=== PATIENT | male | born 1935 | race Caucasian/White ===

== ENCOUNTER → 2017-01-06 | Outpatient (CLI) | payer BC, MEDICARE ==
--- NOTE | 2017-01-06 10:07 | FL ---
Small bowel follow-through HISTORY: Anterolisthesis, constipation Correlation to CT scan 03 Jan 2017 Patient was given high density barium to drink. Contracts Paralegal film shows degenerative disc changes, vascular calcifications are present within the pelvis. 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 Calcification seen within the colon on the CT is not identified with certainty on today's exam. There is no evident bowel obstruction. No fistula formation. Fold pattern is normal. Terminal ileum is normal. IMPRESSION: No evident obstruction. Normal fold pattern. Additional findings above.
== END | disposition home or self-care (01) ==
LOC: RADFLMAIN 07:49
PROVIDERS: ATTEND General Practice
DX: K58.1 Irritable bowel syndrome with constipation (principal)
CPT/HCPCS: 74250

== ENCOUNTER → 2018-10-25 | Outpatient (CLI) | payer MEDICARE ==
--- NOTE | 2018-10-25 13:06 | CONS ---
CONSULTATION DATE OF SERVICE: 10/25/2018 An 83-year-old gentleman who has been evaluated in the Sleep Center for his sleep problems. HISTORY OF PRESENT ILLNESS/SLEEP-WAKE EVALUATION: Patient had difficulties with initiating sleep which improved while he is on treatment with paroxetine and trazodone at bedtime. His sleep schedule from around 10 p.m. until 6 - 7:00 a.m. No TV in bedroom. He usually sleeps on the side position by himself presently. No information about his snoring or breathing during the sleep. Patient awakenings from sleep several times with 1 episode of nocturia. He usually does not take any naps and drinks 2 caffeinated beverages during the day. [place] Sleepiness Scale is 1. PAST MEDICAL HISTORY: Positive for hypertension, diabetes, hyperlipidemia, possible anxiety, right leg DVT. MEDICATIONS: Metformin, lisinopril, chlorthalidone, amlodipine, simvastatin, trazodone, paroxetine, aspirin. Previously was on . Medication was stopped. SOCIAL HISTORY: Patient quit smoking 50 years ago. Alcohol consumption none since June of 2018. FAMILY HISTORY: Hypertension, hyperlipidemia, diabetes. REVIEW OF SYSTEMS: Awakenings from sleep with nocturia. PHYSICAL EXAM: gentleman without distress, BP 132/68, HR 50, RR 18, height 5 foot 6 inches, weight 186.4 pounds, body mass index 30.0, temperature 98.5, oxygen saturation at room air 95%. OROPHARYNX: Extremely low position of soft palate. Mallampati IV. Slight restriction of nasal breathing. HEART: S1, S2, irregular, possible trigeminy. Episodes of breathing pauses and deep breaths while sitting. Neck Supple, no JVD. Thyroid is not palpable. ABDOMEN Soft and nontender. Bowel sounds are present. No organomegaly appreciated. EXTREMITIES No clubbing or cyanosis. 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 Cranial nerves 2 to 7 intact. There is no fasciculation or atrophy. noted. No focal deficits observed. IMPRESSION: 1. Low position of soft palate. Restriction of nasal breathing, awakenings from sleep with nocturia. Possible obstructive sleep apnea-hypopnea syndrome. 2. Hypertension. 3. Diabetes mellitus. 4. History of asthma. 5. Hyperlipidemia. 6. History of possible anxiety. 7. Status post right leg deep venous thrombosis. 8. Cardiac arrhythmia by auscultation, trigeminy. PLAN: 1. Polysomnography for evaluation of patient's breathing during sleep. 2. CPAP/BiPAP titration if sleep study confirms obstructive sleep apnea-hypopnea syndrome. 3. Preferable position during sleep on the side. 4. No driving if patient feels any sleepiness. 5. I will see patient for follow up visit to explain results of testing and following plan. Thank you very much for referring this patient for consultation. Sincerely, Juma Childers MD, PhD, FAASM Diplomat of [place] [employer] [place] [employer] Beck Tender [facility] [place] MMODL / IJN: [id number] /
== END ==
LOC: SLEEP 11:06
PROVIDERS: ATTEND Internal Medicine
DX: R35.1 Nocturia (principal); I10 Essential (primary) hypertension; E11.9 Type 2 diabetes mellitus without complications; J45.909 Unspecified asthma, uncomplicated; E78.5 Hyperlipidemia, unspecified; R00.8 Other abnormalities of heart beat; Z86.718 Personal history of other venous thrombosis and embolism; Z79.899 Other long term (current) drug therapy; Z79.84 Long term (current) use of oral hypoglycemic drugs; Z79.82 Long term (current) use of aspirin; Z87.891 Personal history of nicotine dependence
CPT/HCPCS: 99211

== ENCOUNTER → 2018-11-30 | Outpatient (CLI) | payer MEDICARE ==
[2018-11-30 07:17] LABS: Blood Urea Nitrogen 13 mg/dL (9-20)
--- NOTE | 2018-11-30 15:59 | CT ---
EXAMINATION TYPE: CT abdomen pelvis w con DATE OF EXAM: 11/30/2018 COMPARISON: None INDICATION: Gross hematuria. DLP: 979 mGycm, Automated exposure control for dose reduction was used. CONTRAST: 100 mL of Isovue 300. Study performed with Oral Contrast TECHNIQUE: Axial images were obtained from above the diaphragm to the pubic rami in the axial plane a t 5 mm thick sections. Reconstructed images are reviewed on the computer in the coronal plane. FINDINGS: Limited CT sections are obtained the lung bases. The lung bases are clear. CT ABDOMEN: Liver: Normal Spleen: Normal Pancreas: Normal Adrenal glands: The adrenal glands are normal. Gallbladder: Normal Kidneys: No masses are evident. No hydronephrosis is present. Several cysts are present through the kidneys. This includes 1.4 cm cysts at the superior anterior left kidney measuring 20 and 16 Hounsfi eld units and a 2.0 cm cyst measuring 10 Hounsfield units on the medial inferior pole right kidney. A 1.8 cm Peripelvic cyst or cortical renal cyst measuring 14 Hounsfield units on the mid right kidney. Delayed images were obtained through the kidneys better demonstrate cysts. Additional smaller corti jo ann renal cysts are evident. Aorta: Vascular calcification is within the aorta. Inferior vena cava: Normal. CT PELVIS: Multiple diverticuli are present throughout the colon including transverse colon and descending colon and sigmoid colon. Fecal debris is at the level the rectum. Study is performed with oral contrast. O ral contrast extends to the mid transverse colon. There are loops of bowel lacking oral contrast limi ting evaluation. Appendix: Normal as visualized. Urinary bladder: Normal. Genitourinary structures: Prostate appears prominent Osseous structures: No suspicious lytic or sclerotic lesions. Degenerative joint changes at the bilat eral hips. Degenerative disc changes are present L5-S1. Milder degenerative disc changes are within t he lumbar spine. IMPRESSIONS: 1. Colonic diverticulosis without acute diverticulitis. 2. Multiple bilateral renal cysts. 3. Prostate hypertrophy. 4. No etiology for hematuria identified.
== END | disposition home or self-care (01) ==
LOC: RADCTMAIN 06:42
PROVIDERS: ATTEND Urology
DX: N28.1 Cyst of kidney, acquired (principal); N40.0 Benign prostatic hyperplasia without lower urinary tract symptoms; K57.30 Diverticulosis of large intestine without perforation or abscess without bleeding; R31.9 Hematuria, unspecified
CPT/HCPCS: 82565; 84520; 74177; 36415; Q9967

== ENCOUNTER → 2019-01-10 | Outpatient (CLI) | payer MEDICARE ==
--- NOTE | 2019-01-10 14:12 | SFUN ---
SLEEP CENTER FOLLOW UP NOTE DATE OF SERVICE: 01/10/2019 An 83-year-old gentleman has been followed in the Sleep Center for treatment of obstructive sleep apnea-hypopnea syndrome. Recently patient had a polysomnogram which showed that patient has obstructive sleep apnea and then he had CPAP titration. During titration, his respiration was on full control. Subsequently, he was started on treatment with CPAP. Today is his first visit when he comes back to the office after starting CPAP. Patient is able is able to use CPAP every night for the whole night and sleeps well with the machine. [place] Sleepiness Scale is only 1, which is absolutely perfect. I checked CPAP unit. CPAP pressure is 9 cm of water. Usage is 100% of nights more than 4 hours, average 8.4 hours. Apnea-hypopnea index only 0.9, which is absolutely perfect, but quite significant leak 59 L/minute. Patient referred that he has dry mouth in the morning. MEDICATIONS: Apresoline, gabapentin, sertraline, simvastatin, aspirin, carvedilol, Tylenol, vitamin D, spironolactone. PHYSICAL EXAM: Patient in no distress. BP 159/88, HR 80, RR 18, weight 187, temp 98.5, oxygen saturation at room air 94%. OROPHARYNX: Low position of soft palate. Mallampati 4. ABDOMEN: Obese. Neck Supple, no JVD. Thyroid is not palpable. LUNGS Clear to percussion and to auscultation. Good air exchange. No wheezing or rhonchi. HEART S1, S2 regular. No murmurs, gallops, or rubs. EXTREMITIES No clubbing or cyanosis. 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 Cranial nerves 2 to 7 intact. There is no fasciculation or atrophy. noted. No focal deficits observed. IMPRESSION: 1. Obstructive sleep apnea-hypopnea syndrome. Patient demonstrated 100% compliance with treatment, benefitting from treatment. 2. History of cardiac arrhythmia. 3. Hyperlipidemia. 4. . 5. History of anxiety and panic attack. 6. Status post cholecystectomy. 7. History of benign tumor of thyroid. 8. Status post bilateral knee replacement. 9. History of spinal stenosis. 10.Status post bilateral shoulder replacement. PLAN: 1. Patient will continue to use CPAP equipment every night for the whole night. 2. Prescription for chin strap. 3. I will maintain all necessary prescriptions for nasal pillow mask, tube, filters. 4. Watching and losing weight. 5. No driving if feeling sleepiness. Thank you very much for allowing me to participate in the management of your patient. Sincerely, Juma Childers MD, PhD, FAASM Diplomat of [place] [employer] [place] [employer] Garden Labourer of [facility] [place] MMODL / SHAHRZAD: [id number] /
== END ==
LOC: SLEEP 13:24
PROVIDERS: ATTEND Internal Medicine
DX: G47.33 Obstructive sleep apnea (adult) (pediatric) (principal); E78.5 Hyperlipidemia, unspecified; F41.9 Anxiety disorder, unspecified; F41.0 Panic disorder [episodic paroxysmal anxiety]; M48.00 Spinal stenosis, site unspecified; Z90.49 Acquired absence of other specified parts of digestive tract; Z86.79 Personal history of other diseases of the circulatory system; Z96.653 Presence of artificial knee joint, bilateral; Z96.611 Presence of right artificial shoulder joint; Z96.612 Presence of left artificial shoulder joint; Z99.89 Dependence on other enabling machines and devices; Z86.018 Personal history of other benign neoplasm

== ENCOUNTER → 2019-08-05 | Outpatient (CLI) | payer MEDICARE ==
[2019-08-05 08:55] LABS: African American GFR (CKD) >90 (>60 ml/min/1.73 sqM); Blood Urea Nitrogen 11 mg/dL (9-20); Non-African American GFR(CKD) 86 (>60 ml/min/1.73 sqM)
--- NOTE | 2019-08-05 10:56 | CT ---
EXAMINATION TYPE: CT abdomen pelvis w con DATE OF EXAM: 08/05/2019 COMPARISON: 11/30/2018 HISTORY: Hematuria CT DLP: 915.8 mGycm CONTRAST: CT scan of the abdomen and pelvis is performed with Oral Contrast and with IV Contrast, patient injec kaleb with 100 mL of Isovue 300. FINDINGS: LUNG BASES-: No visible nodule. No infiltrate. LIVER/GB: No calcified gallstones. No space occupying hepatic lesion. Biliary tree is of normal ca liber. PANCREAS: No inflammation. No distinct mass. SPLEEN: No splenic enlargement. No lesion seen. ADRENALS: No nodule. No thickening. KIDNEYS/BLADDER: Bilobed simple cyst upper pole left kidney redemonstrated with components measuring 1.3 cm 1.4 cm respectively. Tiny subcentimeter cyst seen lower pole left kidney. Simple cyst lower po le right kidney measures 2.2 cm and is stable. Parapelvic cyst right kidney measures 2.1 cm and is al so stable. No solid renal lesions are detected. No hydronephrosis or nephrolithiasis detected. Unrema rkable appearing urinary bladder. BOWEL: Normal appendix. Normal bowel caliber. No inflammation. Moderate rectosigmoid fecal stasis. GENITAL ORGANS: The prostate gland is enlarged. LYMPH NODES: No greater than 1cm abdominal or pelvic lymph nodes are appreciated. AORTA: No significant abnormality. OSSEOUS STRUCTURES: No significant abnormality is seen. OTHER: No significant additional abnormality is seen. IMPRESSION: 1. No significant abnormality to account for the patient's symptoms of hematuria. 2. Prostate gland enlargement. 3. Moderate rectosigmoid fecal stasis.
== END | disposition home or self-care (01) ==
LOC: RADCTMAIN 08:14
PROVIDERS: ATTEND Urology
DX: N40.0 Benign prostatic hyperplasia without lower urinary tract symptoms (principal); K59.8 Other specified functional intestinal disorders
CPT/HCPCS: 36415; 74177; 82565; 84520

== ENCOUNTER → 2019-08-23 | Outpatient (CLI) | payer MEDICARE ==
--- NOTE | 2019-08-23 14:12 | NM ---
EXAMINATION TYPE: NM bone scan whole body DATE OF EXAM: 08/23/2019 COMPARISON: CT 08/05/2019 HISTORY: Prostate cancer Delayed whole-body scanning was performed following the injection of 24.1 mCi Tc 99m MDP. Images acq uired 3.5 hours post injection. FINDINGS: There is abnormal uptake throughout the cervical, thoracic and lower lumbar spine. Recent CT scan inc luding the lumbar spine and appears to be most secondary to degenerative disc disease. Abnormal uptake involving the hips is noted bilaterally greater on the left. CT scan also includes th is region and is compatible with severe arthropathy. No blastic or destructive changes. Abnormal uptake involving the feet, knees and shoulders and sternoclavicular joints most likely is po st arthritic. Incidental note made of soft tissue artifact. IMPRESSION: 1. No diagnostic evidence of metastases. 2. Abnormal uptake involving the lower lumbar spine and right hip compatible degenerative and arthrit ic changes respectively based on the recent CT scan. 3. Nonspecific uptake involving the cervical and thoracic spine but likely degenerative. 4. Lucent lesion in the right iliac bone noted by recent CT scan demonstrates no definite reduced or increased uptake. Finding is nonspecific, but not typical of prostate cancer.
== END | disposition home or self-care (01) ==
LOC: RADNMMAIN 09:22
PROVIDERS: ATTEND Urology
DX: M51.36 Other intervertebral disc degeneration, lumbar region (principal); C61 Malignant neoplasm of prostate
CPT/HCPCS: 78306; A9503

== ENCOUNTER → 2019-10-30 | Outpatient (CLI) | payer MEDICARE ==
[2019-10-30 11:54] LABS: Basophils % (A) 0 %; Eosinophils # (A) 0.1 k/uL (0-0.7); Eosinophils % (A) 2 %; HCT 43.9 % (39.0-53.0); HGB 15.1 gm/dL (13.0-17.5); Lymphocytes # (A) 1.1 k/uL (1.0-4.8); Lymphocytes % (A) 13 %; MCH 29.6 pg (25.0-35.0); MCHC 34.4 g/dL (31.0-37.0); MCV 86.3 fL (80.0-100.0); Mean Platelet Volume 7.8; Monocytes # (A) 0.5 k/uL (0-1.0); Monocytes % (A) 6 %; Neutrophils # (A) 6.1 k/uL (1.3-7.7); Neutrophils % (A) 77 %; Platelet Count 209 k/uL (150-450); RBC 5.09 m/uL (4.30-5.90); RDW 12.6 % (11.5-15.5)
--- NOTE | 2019-10-30 12:01 | XR ---
EXAMINATION TYPE: XR chest 2V DATE OF EXAM: 10/30/2019 COMPARISON: NONE HISTORY: Z01.818, R05 TECHNIQUE: Frontal and lateral views of the chest are obtained. FINDINGS: There is no focal air space opacity, pleural effusion, or pneumothorax seen. The cardiac silhouette size is within normal limits, there are coronary artery calcifications present. The aorta is dense. There is thoracic spondylosis. The osseous structures are intact. IMPRESSION: No acute cardiopulmonary process.
[2019-10-30 12:18] LABS: African American GFR (CKD) >90 (>60 ml/min/1.73 sqM); Anion Gap 6 mmol/L; Blood Urea Nitrogen 13 mg/dL (9-20); Calcium 9.4 mg/dL (8.4-10.2); Carbon Dioxide 32 mmol/L (22-30); Chloride 98 mmol/L (98-107); Glucose 171 mg/dL (74-99); Non-African American GFR(CKD) 88 (>60 ml/min/1.73 sqM); Potassium 3.9 mmol/L (3.5-5.1); Sodium 136 mmol/L (137-145)
== END | disposition home or self-care (01) ==
LOC: LABPAT 11:15
PROVIDERS: ATTEND Urology
DX: Z01.818 Encounter for other preprocedural examination (principal); Z01.812 Encounter for preprocedural laboratory examination; C66.1 Malignant neoplasm of right ureter; I10 Essential (primary) hypertension; R05 Cough; R31.29 Other microscopic hematuria
CPT/HCPCS: 36415; 71046; 80048; 85025; 87086

== ENCOUNTER 2019-11-09 03:23 | Inpatient (IN) | payer MEDICARE ==
--- NOTE | 2019-11-09 03:51 | ED ---
Fall HPI - General Chief Complaint: Fall Stated Complaint: poss femur fracture Time Seen by Provider: 11/09/19 03:31 Source: patient, EMS Mode of arrival: EMS - History of Present Illness Initial Comments: This patient is an 84-year-old man who presents to be evaluated for left leg pain that started after he fell tonight. The patient states that he fell after he emptied his catheter bag. As result of the fall he states he had left thigh pain and was not able to put any weight on his left leg. EMS was called and brings him here for further evaluation. The patient denies other injury. Patient is offered analgesia at initial history and physical exam but declines. 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: no Place Fall Occurred: home Loss of Consciousness: none Prolonged Down Time?: no Symptoms Prior to Fall: none Location - Extremities: Left: Thigh Severity: moderate Quality: aching Context: tripped/slipped Associated Symptoms: unable to walk - Related Data Home Medications Medication Instructions Recorded Confirmed Aspirin [Adult Low Dose Aspirin EC] 81 mg PO DAILY 11/04/19 11/04/19 Atenolol [Tenormin] 100 mg PO DAILY 11/04/19 11/04/19 Chlorthalidone 25 mg PO DAILY 11/04/19 11/04/19 Cholecalciferol [Vitamin D3 (25 1,000 unit PO DAILY 11/04/19 11/04/19 Mcg = 1000 Iu)] Lisinopril 40 mg PO DAILY 11/04/19 11/04/19 PARoxetine [Paxil] 20 mg PO HS 11/04/19 11/04/19 Simvastatin [Zocor] 20 mg PO DAILY 11/04/19 11/04/19 amLODIPine [Norvasc] 10 mg PO DAILY 11/04/19 11/04/19 metFORMIN HCL [Glucophage] 500 mg PO DAILY 11/04/19 11/04/19 traZODone HCL 150 mg PO HS 11/04/19 11/04/19 Previous Rx's Medication Instructions Recorded Ciprofloxacin HCl [Cipro] 250 mg PO Q12HR #6 tablet 11/08/19 Hydrocodone/Acetaminophen [[place] 1 - 2 each PO Q4HR PRN #10 tab 11/08/19 1-325] Allergies Allergy/AdvReac Type Severity Reaction Status Date / Time No Known Allergies Allergy Verified 11/06/19 11:17 Review of Systems ROS Statement: Those systems with pertinent positive or pertinent negative responses have been documented in the HPI. ROS Other: All systems not noted in ROS Statement are negative. Constitutional: Denies: fever, chills, weakness Respiratory: Denies: cough, dyspnea Cardiovascular: Denies: chest pain, palpitations, syncope Gastrointestinal: Denies: abdominal pain, nausea, vomiting Musculoskeletal: Reports: as per HPI, arthralgia. Denies: back pain Skin: Denies: rash Neurological: Denies: headache, weakness, numbness Past Medical History Past Medical History: Diabetes Mellitus, Deep Vein Thrombosis (DVT), Hyperlipidemia, Hypertension Additional Past Medical History / Comment(s): Prostate Cancer, Urothelial Carcinoma of Right Ureter History of Any Multi-Drug Resistant Organisms: None Reported Additional Past Surgical History / Comment(s): biopsy of rt kidney, colonoscopy, right kidney removal Past Anesthesia/Blood Transfusion Reactions: No Reported Reaction Past Psychological History: No Psychological Hx Reported Smoking Status: Former smoker Past Alcohol Use History: Occasional Past Drug Use History: None Reported - Past Family History Mother Family Medical History: No Reported History General Exam Limitations: no limitations General appearance: alert, in no apparent distress Head exam: Present: atraumatic, normocephalic Eye exam: Present: normal appearance. Absent: scleral icterus, conjunctival injection Neck exam: Present: normal inspection, full ROM. Absent: tenderness, meningismus Respiratory exam: Present: normal lung sounds bilaterally. Absent: respiratory distress, wheezes, rales, rhonchi, stridor, chest wall tenderness Cardiovascular Exam: Present: regular rate, normal rhythm, normal heart sounds. Absent: systolic murmur, diastolic murmur, rubs, gallop GI/Abdominal exam: Present: soft, other (Patient's is surgical incision have normal postoperative appearance. There is small amount of localized ecchymosis at the incision. No abnormal erythema or warmth. No drainage.). Absent: distended, tenderness, guarding, rebound, rigid, mass Extremities exam: Present: tenderness, normal capillary refill. Absent: pedal edema, calf tenderness Left Hip exam: Present: tenderness, external rotation, shortening Knee exam: Present: normal inspection. Absent: tenderness, swelling, abrasion, laceration Lower Leg exam: Present: normal inspection, full ROM. Absent: tenderness, swelling, abrasion Ankle exam: Present: normal inspection, full ROM. Absent: tenderness, swelling Foot/Toe exam: Present: normal inspection, full ROM. Absent: tenderness, swelling Neurovascular tendon exam: Present: no vascular compromise Neurological exam: Present: alert. Absent: motor sensory deficit Skin exam: Present: warm, dry, intact, normal color. Absent: rash Course Vital Signs 11/09/19 11/09/19 03:25 05:15 Temperature 98.5 F 98.1 F Pulse Rate 70 68 Respiratory 18 18 Rate Blood Pressure 158/67 135/73 O2 Sat by Pulse 93 L 94 L Oximetry Medical Decision Making - Lab Data Result diagrams: 11/09/19 03:46 11/09/19 03:46 Lab Results 11/09/19 11/09/19 Range/Units 03:46 03:46 WBC 13.3 H (3.8-10.6) k/uL RBC 4.18 L (4.30-5.90) m/uL Hgb 12.8 L (13.0-17.5) gm/dL Hct 35.7 L (39.0-53.0) % MCV 85.3 (80.0-100.0) fL MCH 30.5 (25.0-35.0) pg MCHC 35.8 (31.0-37.0) g/dL RDW 12.5 (11.5-15.5) % Plt Count 149 L (150-450) k/uL Neutrophils % 88 % Lymphocytes % 5 % Monocytes % 5 % Eosinophils % 1 % Basophils % 0 % Neutrophils # 11.7 H (1.3-7.7) k/uL Lymphocytes # 0.6 L (1.0-4.8) k/uL Monocytes # 0.7 (0-1.0) k/uL Eosinophils # 0.1 (0-0.7) k/uL Basophils # 0.0 (0-0.2) k/uL Sodium 130 L (137-145) mmol/L Potassium 3.3 L (3.5-5.1) mmol/L Chloride 96 L (98-107) mmol/L Carbon Dioxide 30 (22-30) mmol/L Anion Gap 4 mmol/L BUN 19 (9-20) mg/dL Creatinine 0.94 (0.66-1.25) mg/dL Est GFR (CKD-EPI)AfAm 87 (>60 ml/min/1.73 sqM) Est GFR (CKD-EPI)NonAf 76 (>60 ml/min/1.73 sqM) Glucose 162 H (74-99) mg/dL Calcium 8.6 (8.4-10.2) mg/dL Total Bilirubin 1.1 (0.2-1.3) mg/dL AST 23 (17-59) U/L ALT 13 (4-49) U/L Alkaline Phosphatase 46 (38-126) U/L Total Protein 5.5 L (6.3-8.2) g/dL Albumin 3.3 L (3.5-5.0) g/dL Disposition Clinical Impression: Fall, Hip fracture, intertrochanteric Disposition: ADMITTED IP TO THIS HOSP Condition: Fair Is patient prescribed a controlled substance at d/c from ED?: No Referrals: Edwardo Newton MD [Primary Care Provider] - 1-2 days
[2019-11-09 04:02] LABS: Basophils % (A) 0 %; Eosinophils # (A) 0.1 k/uL (0-0.7); Eosinophils % (A) 1 %; HCT 35.7 % (39.0-53.0); HGB 12.8 gm/dL (13.0-17.5); Lymphocytes # (A) 0.6 k/uL (1.0-4.8); Lymphocytes % (A) 5 %; MCH 30.5 pg (25.0-35.0); MCHC 35.8 g/dL (31.0-37.0); MCV 85.3 fL (80.0-100.0); Mean Platelet Volume 7.7; Monocytes # (A) 0.7 k/uL (0-1.0); Monocytes % (A) 5 %; Neutrophils # (A) 11.7 k/uL (1.3-7.7); Neutrophils % (A) 88 %; Platelet Count 149 k/uL (150-450); RBC 4.18 m/uL (4.30-5.90); RDW 12.5 % (11.5-15.5); WBC 13.3 k/uL (3.8-10.6)
[2019-11-09 04:16] LABS: Albumin 3.3 g/dL (3.5-5.0); Calcium 8.6 mg/dL (8.4-10.2); Potassium 3.3 mmol/L (3.5-5.1); Total Bilirubin 1.1 mg/dL (0.2-1.3); Total Protein 5.5 g/dL (6.3-8.2)
--- NOTE | 2019-11-09 04:28 | XR ---
EXAMINATION TYPE: XR femur LT DATE OF EXAM: 11/09/2019 COMPARISON: NONE HISTORY: Leg pain TECHNIQUE: 4 views FINDINGS: There is acute comminuted intertrochanteric fracture left femur. There is no significant di splacement. The acetabulum is intact. There is spurring of the femoral head. The knee joint is intact . There is vascular calcification. IMPRESSION: Acute intertrochanteric fracture left femur.
--- NOTE | 2019-11-09 04:29 | XR ---
EXAMINATION TYPE: XR pelvis AP view DATE OF EXAM: 11/09/2019 COMPARISON: NONE HISTORY: Pain TECHNIQUE: 2 views FINDINGS: There is an acute intertrochanteric fracture of the left femur. There is approximate 1.5 cm of displacement. There is no dislocation. Pelvic ring is intact. Sacroiliac joints appear normal. Th ere is hypertrophic acetabular spurring with left hip joint space narrowing more than the right. IMPRESSION: Acute mildly displaced fracture of the intertrochanteric left femur. Osteoarthritis.
[2019-11-09] MEDS ORDERED: HYDROmorphone 1 MG/ML 1 ML SYRINGE IVP STA (05:07)
[2019-11-09] MEDS ORDERED: HYDROmorphone 1 MG/ML 1 ML SYRINGE IVP PRN (06:20)
[2019-11-09] MEDS ORDERED: MORPHINE SULFATE 4 MG/ML SYRINGE IV PRN (06:20)
[2019-11-09] MEDS ORDERED: NALOXONE 0.4 MG/ML 1 ML VIAL IV PRN ×2 (06:20→15:00)
[2019-11-09] MEDS ORDERED: HYDROcodone/APAP 5-325MG 1 EACH TAB PO PRN ×2 (06:22→15:00)
[2019-11-09] MEDS ORDERED: LISINOPRIL 20 MG TAB PO SCH (09:00)
[2019-11-09] MEDS ORDERED: metFORMIN 500 MG TAB PO SCH (09:00)
[2019-11-09] MEDS ORDERED: CHLORTHALIDONE 25 MG TAB PO SCH (09:00)
[2019-11-09] MEDS: ATENOLOL 50 MG TAB PO SCH (09:35)
--- NOTE | 2019-11-09 10:33 | P.HPOR ---
<Rafal Claros - Last Filed: 11/09/19 10:30> History of Present Illness H&P Date: 11/09/19 Chief Complaint: Left hip pain status post fall Patient is a very pleasant 84-year-old male who is seen and examined at bedside for further evaluation for his left hip. He states he got up in the middle of the night to use the restroom by emptying his Shah catheter bag when he tripped on the bag falling on his left hip. He has had significant pain and unable to ambulate since that time. He was brought to [facility] for further evaluation. He is currently nothing by mouth status in anticipation for possible surgical intervention today. He has been seen and examined by medicine who has cleared the patient for surgical intervention. Patient does have a recent surgical history with robot-assisted laparoscopic right nephroureterectomy performed by Dr. Barone performed on 11/06/2019 without complication. He has had a catheter intact since that time. Patient's past medical history includes diabetes mellitus, deep vein thrombosis, hyperlipidemia, and hypertension. Patient's nephew is in town and request for us to discuss his care with him. Past Medical History Past Medical History: Diabetes Mellitus, Deep Vein Thrombosis (DVT), Hyperlipidemia, Hypertension Additional Past Medical History / Comment(s): Prostate Cancer, Urothelial Carcinoma of Right Ureter History of Any Multi-Drug Resistant Organisms: None Reported Additional Past Surgical History / Comment(s): biopsy of rt kidney, colonoscopy, right kidney removal Past Anesthesia/Blood Transfusion Reactions: No Reported Reaction Past Psychological History: No Psychological Hx Reported Smoking Status: Former smoker Past Alcohol Use History: Occasional Past Drug Use History: None Reported - Past Family History Mother Family Medical History: No Reported History Medications and Allergies Home Medications Medication Instructions Recorded Confirmed Type Aspirin [Adult Low Dose Aspirin EC] 81 mg PO DAILY 11/04/19 11/09/19 History Atenolol [Tenormin] 100 mg PO DAILY 11/04/19 11/09/19 History Chlorthalidone 25 mg PO DAILY 11/04/19 11/09/19 History Cholecalciferol [Vitamin D3 (25 1,000 unit PO DAILY 11/04/19 11/09/19 History Mcg = 1000 Iu)] Lisinopril 40 mg PO DAILY 11/04/19 11/09/19 History PARoxetine [Paxil] 20 mg PO HS 11/04/19 11/09/19 History Simvastatin [Zocor] 20 mg PO HS 11/04/19 11/09/19 History amLODIPine [Norvasc] 10 mg PO DAILY 11/04/19 11/09/19 History metFORMIN HCL [Glucophage] 500 mg PO DAILY 11/04/19 11/09/19 History traZODone HCL 150 mg PO HS 11/04/19 11/09/19 History Ciprofloxacin HCl [Cipro] 250 mg PO Q12HR #6 tablet 11/08/19 11/09/19 Rx HYDROcodone/APAP 5-325MG [[place] 1 - 2 tab PO Q4H PRN 11/09/19 11/09/19 History 5-325] Allergies Allergy/AdvReac Type Severity Reaction Status Date / Time No Known Allergies Allergy Verified 11/09/19 10:47 Physical Examination Physical exam: Patient is awake, alert, and oriented 3 Vital signs stable Good chest excursion with deep inspiration and expiration Evidence of a healing incision along the midline of the abdomen and 2 incisions over the right side of the abdomen following previous surgical intervention Left lower extremity is externally rotated Pain with palpation of the left hip Significant pain with internal and external rotation of the left hip No pain with internal and external rotation of the right hip Neurovascularly intact bilateral lower extremities Dorsiflexion, plantarflexion, and extensor hallucis longus positive sustained bi laterally Calves are soft and supple; No signs or symptoms of DVT; No calf pain Shah catheter intact Results Pertinent studies: X-rays of the left hip and femur taken on 11/09/2019: Acute comminuted intratrochanteric fracture of the left femur without significant displacement; osteoarthritis of the left hip - Labs Labs: Abnormal Lab Results - Last 24 Hours (Table) 11/09/19 11/09/19 Range/Units 03:46 03:46 WBC 13.3 H (3.8-10.6) k/uL RBC 4.18 L (4.30-5.90) m/uL Hgb 12.8 L (13.0-17.5) gm/dL Hct 35.7 L (39.0-53.0) % Plt Count 149 L (150-450) k/uL Neutrophils # 11.7 H (1.3-7.7) k/uL Lymphocytes # 0.6 L (1.0-4.8) k/uL Sodium 130 L (137-145) mmol/L Potassium 3.3 L (3.5-5.1) mmol/L Chloride 96 L (98-107) mmol/L Glucose 162 H (74-99) mg/dL Total Protein 5.5 L (6.3-8.2) g/dL Albumin 3.3 L (3.5-5.0) g/dL H & H 11/09/19 Range/Units 03:46 Hgb 12.8 L (13.0-17.5) gm/dL Hct 35.7 L (39.0-53.0) % Result Diagrams: 11/09/19 03:46 11/09/19 03:46 Assessment and Plan Assessment: Assessment: Acute comminuted intertrochanteric fracture of the left femur Status post fall Left hip osteoarthritis robot-assisted laparoscopic right nephroureterectomy performed by Dr. Barone performed on 11/06/2019 Diabetes mellitus History of deep vein thrombosis Hyperlipidemia Hypertension (1) Fracture, intertrochanteric, left femur Current Visit: Yes Status: Acute Code(s): S72.142A - DISPLACED INTERTROCHANTERIC FRACTURE OF LEFT FEMUR, INIT SNOMED Code(s): 261839860 (2) Status post fall Current Visit: Yes Status: Acute Code(s): Z91.81 - HISTORY OF FALLING SNOMED Code(s): 261690944 (3) Left hip pain Current Visit: Yes Status: Acute Code(s): M25.552 - PAIN IN LEFT HIP SNOMED Code(s): 84484680 (4) Diabetes mellitus Current Visit: Yes Status: Acute Code(s): E11.9 - TYPE 2 DIABETES MELLITUS WITHOUT COMPLICATIONS SNOMED Code(s): 50660763 (5) Hypertension Current Visit: Yes Status: Acute Code(s): I10 - ESSENTIAL (PRIMARY) HYPERTENSION SNOMED Code(s): 41800096 (6) Hyperlipidemia Current Visit: Yes Status: Acute Code(s): E78.5 - HYPERLIPIDEMIA, UNSPECI FIED SNOMED Code(s): 34104035 (7) History of DVT (deep vein thrombosis) Current Visit: Yes Status: Acute Code(s): Z86.718 - PERSONAL HISTORY OF OTHER VENOUS THROMBOSIS AND EMBOLISM SNOMED Code(s): 478648746 Plan: Plan: 1. Patient has been discussed in detail with Dr. Bam Ryan and Dr. Mc donis in medicine. Patient does have evidence of a left acute comminuted intertrochanteric hip fracture of the left femur status post fall. Patient has been nonweightbearing on the left lower extremity and has been unable to weight bear due to his fracture and pain. Patient is currently nothing by mouth status in anticipation for surgical intervention. We discussed given his fracture, surgical intervention for stabilization provides him the best opportunity have some improvement of his symptoms and the best opportunity to have increased mobility and ambulation on his left lower extremity following his postoperative recovery period. Patient states he would like to proceed forward with surgical intervention. Patient also requests for detailed description of his care to be discussed with his nephew, Trevor Gomez. His nephew has been called and plan of care has been discussed with his nephew as requested. Patient would like to proceed forward with surgical intervention today. Patient has been cleared for surgical intervention by medicine. The patient has been discussed in detail with anesthesia. We're currently planning for surgical intervention today, 11/01/2019, at 11:30 AM. The proposed surgical intervention is a left intramedullary nail fixation for left intertrochanteric hip fracture to be performed by Dr. Bam Ryan. I discussed these issues with the patient at length and I answered all of their questions to the best of my ability and the patient understands. I discussed the risk of surgical intervention and alternative treatment options. The risk of surgical intervention was explained to the patient in detail including but not limited to risk of bleeding, risk of infection, risk and need for further surgery, risk of decreased loss of motion of function, malunion, nonunion, hardware failure, nerve damage, paralysis, heart attack, , as well as the fact that surgery may not alleviate her symptoms. I answered all the patient's questions the best of my ability. The patient would like to proceed forward with surgical intervention and will sign informed consent. Time with Patient: Greater than 30 (Including obtaining history, physical examination, reviewing of imaging, and dictation.) <Bam Ryan - Last Filed: 11/09/19 12:09> Results - Labs Labs: Abnormal Lab Results - Last 24 Hours (Table) 11/09/19 11/09/19 Range/Units 03:46 03:46 WBC 13.3 H (3.8-10.6) k/uL RBC 4.18 L (4.30-5.90) m/uL Hgb 12.8 L (13.0-17.5) gm/dL Hct 35.7 L (39.0-53.0) % Plt Count 149 L (150-450) k/uL Neutrophils # 11.7 H (1.3-7.7) k/uL Lymphocytes # 0.6 L (1.0-4.8) k/uL Sodium 130 L (137-145) mmol/L Potassium 3.3 L (3.5-5.1) mmol/L Chloride 96 L (98-107) mmol/L Glucose 162 H (74-99) mg/dL Total Protein 5.5 L (6.3-8.2) g/dL Albumin 3.3 L (3.5-5.0) g/dL H & H 11/09/19 Range/Units 03:46 Hgb 12.8 L (13.0-17.5) gm/dL Hct 35.7 L (39.0-53.0) % Result Diagrams: 11/09/19 03:46 11/09/19 03:46 Assessment and Plan Plan: Reviewed and agree with above (amendments/corrections noted below). The patient was subsequently seen and examined by me as well. S: The patient states that he simply tripped over the catheter tubing. He denies any other injuries or areas of pain. He does not use any assist devices with ambulation. He normally lives alone, but his nephew is staying with them for a couple weeks as he recovers from his nephrectomy. He has prostate cancer but the patient states he is "in remission." He is scheduled to start radiation treatments. His last A1c was 5.9. He states that he did have a blood clot about a year ago after a fall. This was around his ankle. He was treated on Xarelto. He has not been on any anticoagulation recently. O: The left lower extremity rests in a shortened and externally rotated position. Intact light touch sensation and gross motor function to the tibialis anterior and gastrocsoleus complex. Subjective a normal light touch sensation. Palpable dorsalis pedis pulse. Foot is warm and well-perfused. Imaging: Displaced, rotated intertrochanteric femur fracture with minimal comminution or angulation. Advanced femoroacetabular arthritis noted. A: Displaced left intertrochanteric femur fracture status post fall P: I discussed the diagnosis and radiographic findings with the patient. We rev iewed the pertinent anatomy and pathophysiology of the fracture. We discussed treatment options and I explained the rationale behind surgical intervention. I recommended operative treatment in the form of closed reduction and cephalomedullary nailing. We discussed the surgical plan as well as the expected postoperative course. Risks and benefits were reviewed including (but not limited to) the risks of infection, bleeding, blood clots, anesthesia related complications and possible need for additional surgery. Questions were invited and answered. The patient expressed understanding and wishes to proceed with surgery. Continue PRN pain management. NPO. Thank you for allowing me to participate in the care of this patient. Bam Ryan D.O. [facility] Bam Ryan D.O. [facility]
--- NOTE | 2019-11-09 10:37 | XR ---
EXAMINATION TYPE: XR chest 1V DATE OF EXAM: 11/09/2019 HISTORY: chf. REFERENCE: Previous study dated 10/30/2019. FINDINGS: Patient stated a relatively poor inspiration. There is atelectatic changes present at both lung bases. There is mild vascular congestion. The heart is enlarged. I suspect small, bilateral effu sions. IMPRESSION: I CANNOT EXCLUDE EARLY CONGESTIVE HEART FAILURE.
[2019-11-09] MEDS ORDERED: SUCCINYLCHOLINE CHLORIDE 100 MG/5 ML SYR IV ONE (12:05)
[2019-11-09] MEDS ORDERED: NEOSTIGMINE 1 MG/ML 10 ML VIAL ONE (12:05)
[2019-11-09] MEDS ORDERED: PHENYLEPHRINE-0.9% NACL SYG 1 MG/10 ML SYRINGE ONE (12:05)
[2019-11-09] MEDS ORDERED: LIDOCAINE 1% INJ 10MG/ML (20 ML MDV) ONE (12:05)
[2019-11-09] MEDS ORDERED: PROPOFOL 10 MG/ML 20 ML VIAL IV ONE (12:05)
[2019-11-09] MEDS ORDERED: ePHEDrine SULFATE/0.9% NACL/PF 50 MG/5 ML SYRINGE IV ONE (12:05)
[2019-11-09] MEDS ORDERED: GLYCOPYRROLATE 0.2 MG/ML 2 ML VIAL ONE (12:05)
[2019-11-09] MEDS ORDERED: ONDANSETRON 4 MG/2 ML VIAL ONE (12:05)
[2019-11-09] MEDS ORDERED: fentaNYL (PF) 50 MCG/ML 2 ML AMP ONE (12:05)
[2019-11-09] MEDS ORDERED: ROCURONIUM BROMIDE 10 MG/ML 5 ML VIAL IV ONE (12:05)
[2019-11-09] MEDS ORDERED: SODIUM CHLORIDE 0.9% 1,000 ML IV ONE ×2 (12:07→15:38)
[2019-11-09] MEDS ORDERED: LACTATED RINGERS 1,000 ML IV ONE ×2 (12:07→13:00)
[2019-11-09] MEDS ORDERED: ceFAZolin 1,000 MG VIAL IVPB ONE (12:23)
[2019-11-09] MEDS ORDERED: ceFAZolin 1,000 MG in SODIUM CHLORIDE 0.9% 1,000 ML IRRIGATION ONE (13:06)
[2019-11-09] MEDS ORDERED: ROPIVACAINE 5 MG/ML 30 ML VIAL MISCELLANE ONE (13:07)
[2019-11-09] MEDS ORDERED: LIDOCAINE 1%-EPI 1:100,000 20 ML VIAL SQ ONE (13:07)
--- NOTE | 2019-11-09 14:33 | FL ---
EXAMINATION TYPE: FL guidance operating room, XR Hip Complete LT DATE OF EXAM: 11/09/2019 CLINICAL HISTORY: Left hip fracture. TECHNIQUE: Fluoroscopy. Intraoperative 2 views left hip. COMPARISON: Same day left femur x-ray. FINDINGS: Fluoroscopic guidance was provided during open reduction internal fixation procedure perfo rmed by Dr. Ryan. A total of 1 minute 19 seconds of fluoroscopic time was utilized during the procedure and 5 spot intraoperative images are acquired. Images acquired show placement of intramedullary kristi with smaller distal transverse fixating screw an d larger femoral neck fixating screw through the intertrochanteric fracture left proximal femur. Impr zuleyka alignment is seen after reduction and fixation. IMPRESSION: As Above.
--- NOTE | 2019-11-09 14:33 | P.CONS ---
History of Present Illness - Reason for Consult Preoperative clearance - History of Present Illness 84-year-old male was admitted for a mechanical fall and hip fracture. I was consulted for medical clearance. 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 Patient is bit constipated still have some abdominal tenderness from the surgery. Patient did well with that surgery I'll obtain an EKG patient function status at baseline is. Is not a smoker doesn't have any history of heart disease denied doesn't have any history of congestive heart failure. Patient did is willing to undergo the surgery in spite of for her still being in pain from the previous surgery. Review of Systems REVIEW OF SYSTEMS: CONSTITUTIONAL: No fever, no malaise, no fatigue. HEENT: No recent visual problems or hearing problems. Denied any sore throat. CARDIOVASCULAR: No chest pain, orthopnea, PND, no palpitations, no syncope. PULMONARY: No shortness of breath, no cough, no hemoptysis. GASTROINTESTINAL: No diarrhea, no nausea, no vomiting, no abdominal pain. NEUROLOGICAL: No headaches, no weakness, no numbness. HEMATOLOGICAL: Denies any bleeding or petechiae. GENITOURINARY: Denies any burning micturition, frequency, or urgency. MUSCULOSKELETAL/RHEUMATOLOGICAL: Hip pain as mentioned above ENDOCRINE: Denies any polyuria or polydipsia. The rest of the 14-point review of systems is negative. Past Medical History Past Medical History: Diabetes Mellitus, Deep Vein Thrombosis (DVT), Hyperlipidemia, Hypertension Additional Past Medical History / Comment(s): Prostate Cancer, Urothelial Carcinoma of Right Ureter History of Any Multi-Drug Resistant Organisms: None Reported Additional Past Surgical History / Comment(s): biopsy of rt kidney, colonoscopy, right kidney removal Past Anesthesia/Blood Transfusion Reactions: No Reported Reaction Past Psychological History: No Psychological Hx Reported Smoking Status: Former smoker Past Alcohol Use History: Occasional Past Drug Use History: None Reported - Past Family History Mother Family Medical History: No Reported History Medications and Allergies Home Medications Medication Instructions Recorded Confirmed Type Aspirin [Adult Low Dose Aspirin EC] 81 mg PO DAILY 11/04/19 11/09/19 History Atenolol [Tenormin] 100 mg PO DAILY 11/04/19 11/09/19 History Chlorthalidone 25 mg PO DAILY 11/04/19 11/09/19 History Cholecalciferol [Vitamin D3 (25 1,000 unit PO DAILY 11/04/19 11/09/19 History Mcg = 1000 Iu)] Lisinopril 40 mg PO DAILY 11/04/19 11/09/19 History PARoxetine [Paxil] 20 mg PO HS 11/04/19 11/09/19 History Simvastatin [Zocor] 20 mg PO HS 11/04/19 11/09/19 History amLODIPine [Norvasc] 10 mg PO DAILY 11/04/19 11/09/19 History metFORMIN HCL [Glucophage] 500 mg PO DAILY 11/04/19 11/09/19 History traZODone HCL 150 mg PO HS 11/04/19 11/09/19 History Ciprofloxacin HCl [Cipro] 250 mg PO Q12HR #6 tablet 11/08/19 11/09/19 Rx HYDROcodone/APAP 5-325MG [[place] 1 - 2 tab PO Q4H PRN 11/09/19 11/09/19 History 5-325] Allergies Allergy/AdvReac Type Severity Reaction Status Date / Time No Known Allergies Allergy Verified 11/09/19 10:47 Physical Exam Vitals: Vital Signs Temp Pulse Pulse Resp BP BP Pulse Ox 11/09/19 11:09 98.2 F 73 16 99/57 94 L 11/09/19 08:00 18 11/09/19 06:38 97.8 F 68 18 116/69 94 L 11/09/19 05:15 98.1 F 68 18 135/73 94 L 11/09/19 03:25 98.5 F 70 18 158/67 93 L Intake and Output 11/08/19 11/09/19 11/09/19 22:59 06:59 14:59 Intake Total 1600 Output Total 525 Balance 1075 Intake: IV 1600 Output: Urine 450 Estimated Blood Loss 75 Other: Voiding Method Indwelling Catheter Weight 81.647 kg 81.647 kg PHYSICAL EXAMINATION: GENERAL: The patient is alert and oriented x3, not in any acute distress. Well developed, well nourished. HEENT: Pupils are round and equally reacting to light. EOMI. No scleral icterus. No conjunctival pallor. Normocephalic, atraumatic. No pharyngeal erythema. No thyromegaly. CARDIOVASCULAR: S1 and S2 present. No murmurs, rubs, or gallops. PULMONARY: Chest is clear to auscultation, no wheezing or crackles. ABDOMEN: Abdomen is nondistended but diffuse mild tenderness all over the abdomen surgical scars are clean without any redness. MUSCULOSKELETAL: Deferred to orthopedic surgery EXTREMITIES: No cyanosis, clubbing, or pedal edema. NEUROLOGICAL: Gross neurological examination did not reveal any focal deficits. SKIN: No rashes. Results CBC & Chem 7: 11/09/19 03:46 11/09/19 03:46 Labs: Abnormal Lab Results - Last 24 Hours (Table) 11/09/19 11/09/19 Range/Units 03:46 03:46 WBC 13.3 H (3.8-10.6) k/uL RBC 4.18 L (4.30-5.90) m/uL Hgb 12.8 L (13.0-17.5) gm/dL Hct 35.7 L (39.0-53.0) % Plt Count 149 L (150-450) k/uL Neutrophils # 11.7 H (1.3-7.7) k/uL Lymphocytes # 0.6 L (1.0-4.8) k/uL Sodium 130 L (137-145) mmol/L Potassium 3.3 L (3.5-5.1) mmol/L Chloride 96 L (98-107) mmol/L Glucose 162 H (74-99) mg/dL Total Protein 5.5 L (6.3-8.2) g/dL Albumin 3.3 L (3.5-5.0) g/dL Assessment and Plan Plan: -Preoperative clearance patient is a low operative risk for hip surgery discussed with the patient and patient is agreeable to undergo another surgery for his left hip. -Hyponatremia secondary to chlorthalidone which were discontinued -Hypertension with anticipation of perioperative hypotension and hold off on chlorthalidone and lisinopril monitor the blood pressure closely. -Right-sided kidney cancer patient is status post nephrectomy patient is on Cipro postoperatively which will be continued -History of DVT in the past patient is presently not on any anticoagulation DVT prophylaxis as per orthopedic surgery -Hypokalemia secondary to chlorthalidone will be replaced -Leukocytosis reactive from his previous surgery no evidence of infection at this time -Type 2 diabetes mellitus metformin will be held patient underwent sliding scale insulin -Hyperlipidemia
--- NOTE | 2019-11-09 15:29 | XR ---
EXAMINATION TYPE: XR Hip Limited LT DATE OF EXAM: 11/09/2019 CLINICAL HISTORY: Left hip fracture. TECHNIQUE: Single frontal view of left hip is obtained immediately postoperatively. COMPARISON: Pelvic and left femur x-ray earlier today. FINDINGS: [place] osseous structures are demineralized. There is new intramedullary kristi with distal tr ansverse fixating screw and proximal femoral neck fixating screw through intertrochanteric fracture l eft proximal femur. Improved alignment is seen after interval reduction and fixation. Fairly moderate to advanced narrowing and acetabular spurring is redemonstrated. Evidence of recent surgery with ove rlying lateral vertical skin pearl and new subcutaneous edema noted. IMPRESSION: As above.
[2019-11-09] MEDS: SODIUM CHLORIDE 0.9% 1,000 ML IV SCH ×2 (15:46→16:39)
[2019-11-09] MEDS: ATORVASTATIN 10 MG TAB PO SCH (15:47)
[2019-11-09] MEDS: INSULIN ASPART (NovoLOG) 100 UNIT/ML VIAL SQ SCH ×3 (15:47→21:20)
[2019-11-09] MEDS: amLODIPine 10 MG TAB PO SCH (15:47)
[2019-11-09] MEDS: ASPIRIN 81 MG PO SCH (15:47)
[2019-11-09] MEDS: CIPROFLOXACIN HCL 250 MG TAB PO SCH ×2 (15:47→21:21)
[2019-11-09] MEDS: CHOLECALCIFEROL 1,000 UNIT TAB PO SCH (15:47)
[2019-11-09 16:54] LABS: Glucose,Whole Blood 164 mg/dL (75-99)
[2019-11-09 20:13] LABS: Glucose,Whole Blood 184 mg/dL (75-99)
[2019-11-09] MEDS: PARoxetine 20 MG TAB PO SCH (21:21)
[2019-11-09] MEDS: traZODone HCL 50 MG TAB PO SCH (21:21)
[2019-11-10] MEDS: SODIUM CHLORIDE 0.9% 1,000 ML IV SCH ×2 (04:28→12:42)
[2019-11-10 06:17] LABS: Basophils % (A) 0 %; Eosinophils # (A) 0.3 k/uL (0-0.7); Eosinophils % (A) 4 %; HCT 28.8 % (39.0-53.0); HGB 10.1 gm/dL (13.0-17.5); Lymphocytes # (A) 0.8 k/uL (1.0-4.8); Lymphocytes % (A) 12 %; MCH 30.5 pg (25.0-35.0); MCV 87.2 fL (80.0-100.0); Mean Platelet Volume 7.8; Monocytes # (A) 0.5 k/uL (0-1.0); Monocytes % (A) 7 %; Neutrophils # (A) 4.9 k/uL (1.3-7.7); Neutrophils % (A) 75 %; Platelet Count 145 k/uL (150-450); RBC 3.31 m/uL (4.30-5.90); RDW 13.1 % (11.5-15.5); WBC 6.5 k/uL (3.8-10.6)
[2019-11-10 06:25] LABS: Calcium 7.3 mg/dL (8.4-10.2); Potassium 3.7 mmol/L (3.5-5.1)
[2019-11-10 07:09] LABS: Glucose,Whole Blood 163 mg/dL (75-99)
[2019-11-10] MEDS: ATENOLOL 50 MG TAB PO SCH (08:09)
[2019-11-10] MEDS: ENOXAPARIN 40 MG/0.4 ML SYRINGE SQ SCH (08:10)
[2019-11-10] MEDS: ASPIRIN 81 MG PO SCH (08:10)
[2019-11-10] MEDS: CHOLECALCIFEROL 1,000 UNIT TAB PO SCH (08:10)
[2019-11-10] MEDS: CIPROFLOXACIN HCL 250 MG TAB PO SCH ×2 (08:10→21:19)
[2019-11-10] MEDS: ATORVASTATIN 10 MG TAB PO SCH (08:10)
[2019-11-10] MEDS: amLODIPine 10 MG TAB PO SCH (08:10)
[2019-11-10] MEDS: INSULIN ASPART (NovoLOG) 100 UNIT/ML VIAL SQ SCH ×4 (08:12→21:18)
[2019-11-10] MEDS: HYDROcodone/APAP 5-325MG 1 EACH TAB PO PRN (09:21)
[2019-11-10] MEDS ORDERED: SENNOSIDES-DOCUSATE SODIUM 1 EACH TAB PO PRN (09:47)
[2019-11-10] MEDS ORDERED: MAGNESIUM HYDROXIDE 2,400 MG/10 ML CUP PO PRN (09:47)
--- NOTE | 2019-11-10 09:53 | P.PN ---
Progress Note - Text Progress Note Date: 11/10/19 Orthopedics: History of present illness: Patient is a very pleasant 84-year-old male who is seen and examined at bedside for follow-up evaluation for his left hip. He is status post left surgical nail fixation for left intertrochanteric hip fracture. He feels his left hip pain is better controlled today has prior to surgical intervention. He initially sustained an injury to his left hip when he states he got up in the middle of the night on 11/09/2019 to use the restroom by emptying his Shah catheter bag when he tripped on the bag falling on his left hip. He was brought to [facility] for further evaluation. Patient does have a recent surgical history with robot-assisted laparoscopic right nephroureterectomy performed by Dr. Barone performed on 11/06/2019 without complication. He states he is scheduled for follow-up evaluation on 11/17/2019 and is supposed to keep his Shah catheter intact until that time. Patient's past medical history includes diabetes mellitus, deep vein thrombosis, hyperlipidemia, and hypertension. Plan of care has been discussed in detail with the patient's nephew. Patient is planning for discharge to a rehabilitation facility as early as 11/12/2019. Physical Exam Intramedullary [place] for Intertrochanteric Fracture: Status post surgical day number 1 Patient is examined lying in bed Patient is awake and alert, and oriented 3 Vital signs stable Good chest excursion with deep inspiration and expiration Evidence of a healing incision along the midline of the abdomen and 2 incisions over the right side of the abdomen following previous surgical intervention Mild discomfort with palpation of the abdomen with evidence of mild distention No signs or symptoms of DVT; no calf pain Lower extremity cuffs in place bilaterally Dressing of the left hip is clean, dry, and intact; no erythema, purulence, or signs of infection No pain with palpation over the surgical sites Full range of motion of ankles bilaterally Dorsiflexion, plantarflexion, and extensor hallucis longus positive sustained bilaterally Neurovascularly intact bilateral lower extremities Capillary refill less than 2 seconds bilateral lower extremities Shah catheter intact Assessment: Status post left surgical nail fixation for left intertrochanteric hip fracture Status post fall Left hip osteoarthritis robot-assisted laparoscopic right nephroureterectomy performed by Dr. Barone performed on 11/06/2019 Diabetes mellitus History of deep vein thrombosis Hyperlipidemia Hypertension Plan: 1. Patient to remain weight-bearing as tolerated with the assistance of a walker on the left lower extremity; patient may work with physical therapy to increase mobility and ambulation 2. Keep dressing over the left hip clean, dry, and intact 3. Patient is having some mild abdominal pain and distention. He has not had a bowel movement approximate 4 days. He did attempt to go to the bathroom this morning and has some gas. At this time we'll plan to add Senokot twice a day as needed and milk of magnesia twice a day as needed to aid in facilitation of a bowel movement 4. Shah catheter to remain intact as set forth by urology; Shah catheter to remain intact until follow-up appointment set on 11/17/2019 following recent surgical intervention 5. Continue pain control with oral [place] and IV Dilaudid as needed for pain control 6. Continue with anticoagulation therapy with Lovenox 40 mg subcu daily 7. Medicine to continue following the patient for their other medical diagnosis including diabetes mellitus, hyperlipidemia, and hypertension 8. We'll continue to follow the patient closely; depending on the patient's progress, we may plan for discharge as early as 11/12/2019, to a rehabilitation facility 9. Patient can follow-up with Bam Ryan at [facility] in 2-3 weeks following discharge
[2019-11-10 11:18] LABS: Glucose,Whole Blood 174 mg/dL (75-99)
[2019-11-10] MEDS ORDERED: POLYETHYLENE GLYCOL 3350 17 GM POWD.PACK PO PRN (13:07)
--- NOTE | 2019-11-10 14:23 | P.PN ---
Subjective 84-year-old male was admitted for a mechanical fall and hip fracture. I was consulted for medical clearance. 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 Patient is bit constipated still have some abdominal tenderness from the surgery. Patient did well with that surgery I'll obtain an EKG patient function status at baseline is. Is not a smoker doesn't have any history of heart disease denied doesn't have any history of congestive heart failure. Patient did is willing to undergo the surgery in spite of for her still being in pain from the previous surgery. 11/10/2019 Patient underwent the surgical correction for his intertrochanteric fracture. Patient denied any pain in that area patient's abdominal pain is also much better. Patient is passing gas did not move his bowel get still constipated. Patient is receiving senna will add MiraLAX. Constitutional: Denied any fatigue denied any fever. Cardio vascular: denied any chest pain, palpitations Gastrointestinal denied any nausea vomiting Pulmonary: Denied any shortness of breath cough Neurologic denied any new focal deficits All inpatient medications were reviewed and appropriate changes in these medications as dictated in the interval history and assessment and plan. Objective - Vital Signs Vital signs: Vital Signs Temp 96.6 F L 11/10/19 11:16 Pulse 78 11/10/19 11:16 Resp 16 11/10/19 11:16 BP 114/69 11/10/19 11:16 Pulse Ox 96 11/10/19 11:16 Intake & Output 11/09/19 11/10/19 11/10/19 18:59 06:59 18:59 Intake Total 1800 1240 Output Total 525 400 Balance 1275 840 Weight 81.647 kg Intake: IV 1800 Intake, IV Titration 950 Amount Sodium Chloride 0.9% 1, 900 000 ml @ 100 mls/hr IV . Q10H [facility] Rx#:[id number] ceFAZolin 2 gm In Sodium 50 Chloride 0.9% 50 ml @ 100 mls/hr IVPB Q8HR [facility] Rx# :[id number] Oral 290 Output: Urine 450 400 Uretheral (Shah) 400 Estimated Blood Loss 75 Other: Voiding Method Indwelling Catheter Indwelling Catheter Indwelling Catheter - Exam PHYSICAL EXAMINATION: GENERAL: The patient is alert and oriented x3, not in any acute distress. Well developed, well nourished. HEENT: Pupils are round and equally reacting to light. EOMI. No scleral icterus. No conjunctival pallor. Normocephalic, atraumatic. No pharyngeal erythema. No thyromegaly. CARDIOVASCULAR: S1 and S2 present. No murmurs, rubs, or gallops. PULMONARY: Chest is clear to auscultation, no wheezing or crackles. ABDOMEN: Abdomen is nondistended but diffuse mild tenderness all over the abdomen surgical scars are clean without any redness. MUSCULOSKELETAL: Deferred to orthopedic surgery EXTREMITIES: No cyanosis, clubbing, or pedal edema. NEUROLOGICAL: Gross neurological examination did not reveal any focal deficits. SKIN: No rashes. - Labs CBC & Chem 7: 11/10/19 05:45 11/10/19 05:45 Labs: Abnormal Lab Results - Last 24 Hours (Table) 11/09/19 11/09/19 11/10/19 Range/Units 16:52 20:12 05:45 RBC 3.31 L (4.30-5.90) m/uL Hgb 10.1 L (13.0-17.5) gm/dL Hct 28.8 L (39.0-53.0) % Plt Count 145 L (150-450) k/uL Lymphocytes # 0.8 L (1.0-4.8) k/uL Sodium (137-145) mmol/L Carbon Dioxide (22-30) mmol/L Glucose (74-99) mg/dL POC Glucose (mg/dL) 164 H 184 H (75-99) mg/dL Calcium (8.4-10.2) mg/dL 11/10/19 11/10/19 11/10/19 Range/Units 05:45 07:07 11:16 RBC (4.30-5.90) m/uL Hgb (13.0-17.5) gm/dL Hct (39.0-53.0) % Plt Count (150-450) k/uL Lymphocytes # (1.0-4.8) k/uL Sodium 131 L (137-145) mmol/L Carbon Dioxide 31 H (22-30) mmol/L Glucose 128 H (74-99) mg/dL POC Glucose (mg/dL) 163 H 174 H (75-99) mg/dL Calcium 7.3 L (8.4-10.2) mg/dL Assessment and Plan Plan: -Left hip fracture status post left hip arthroplasty -Hyponatremia secondary to chlorthalidone which were discontinued improved a bit but will continue with IV fluids recheck basic metabolic profile tomorrow -Hypertension with anticipation of perioperative hypotension and hold off on chlorthalidone and lisinopril monitor the blood pressure closely. -Right-sided kidney cancer patient is status post nephrectomy patient is on Cipro postoperatively which will be continued -History of DVT in the past patient is presently not on any anticoagulation DVT prophylaxis as per orthopedic surgery -Hypokalemia secondary to chlorthalidone will be replaced -Leukocytosis reactive from his previous surgery no evidence of infection at this time -Type 2 diabetes mellitus metformin will be held patient underwent sliding scale insulin -Hyperlipidemia
[2019-11-10 17:16] LABS: Glucose,Whole Blood 146 mg/dL (75-99)
--- NOTE | 2019-11-10 17:38 | P.OP ---
Date of Procedure: 11/09/19 Preoperative Diagnosis: Displaced left intertrochanteric femur fracture Postoperative Diagnosis: Displaced left intertrochanteric femur fracture Procedure(s) Performed: Closed reduction and internal fixation of left intertrochanteric femur fracture with cephalomedullary (IM) nail Implants: [employer]ynthes TFNA short proximal femoral nail, 130 11 mm x 170 mm; 105 mm helical blade and a 5.0 mm distal locking screw Anesthesia: ROSEMARIE Surgeon: Bam Ryan Estimated Blood Loss (ml): 75 Condition: stable Disposition: PACU Indications for Procedure: The patient is a pleasant 84-year-old male who sustained a displaced left intertrochanteric femur fracture after a mechanical fall. Surgical treatment was recommended. Risks and benefits were discussed, including (but not limited to) the risks of infection, bleeding, anesthesia-related complications and blood clots. He expressed understanding and wished to proceed with surgery. Consent forms were signed. The surgical site was confirmed and marked preoperatively. Description of Procedure: The patient was brought to the operative suite by the anesthesia team. General anesthesia was administered uneventfully. The patient was transferred to the operating table and positioned supine. Both feet were secured in well-padded boots with the operative limb straight and the contralateral limb scissored and semi-extended. All bony prominences were padded in the typical fashion. Prophylactic antibiotics were administered. A time-out was performed, confirming patient identifiers, the operative side, site and procedure: all team members expressed agreement. The fracture was evaluated with intraoperative fluoroscopy. The fracture was manually reduced, confirmed on orthogonal images. The left lower extremity was then prepped and draped in a standard, sterile fashion. A small stab incision was made proximal to the greater trochanter and a guidewire was inserted. Fluoroscopy was used to localize the starting point at the tip of the greater trochanter and the wire was advanced into the proximal femur. The initial position was found to be suboptimal. The skin incision was extended and a second wire was inserted through a targeting guide. Better position was achieved and the first wire was removed. The entry reamer was inserted through a tissue protector and advanced to the level of the lesser trochanter under fluoroscopic guidance. The reamer and guidewire were removed. Based on the patient's anatomy and fracture pattern, an 11 mm short nail was selected. This was attached to the insertion handle and passed down the medullary canal. An incision was made laterally along the proximal thigh for placement of the cephalomedullary helical blade. A drill sleeve was inserted down to the lateral femoral cortex. A guidewire was advanced through the nail and into the femoral head. Position of the wire was confirmed on orthogonal views and adjusted to a satisfactory position. Measuring off the guidewire, a 105 mm blade was selected. A cannulated drill was used and the blade was ins erted over the guidewire to the appropriate depth. The set screw was tightened to lock the blade in place, then slightly loosened to allow for dynamic compression. Compression was applied through the lag screw insertion cannula, visually confirmed on imaging. The guidewire was removed. A small incision was made for the distal screw. The drill sleeve was inserted and advanced to the lateral femoral cortex. The bone was drilled & measured. A 5 mm x 40 mm distal cortical screw was inserted. The insertion handle was removed. Final x-rays were taken to confirm fracture reduction and implant position. All wounds were irrigated thoroughly with normal saline. The subcutaneous tissues were closed in layers: #1 Vicryl for the fascia; interrupted 0 Vicryl and 2-0 Vicryl sutures for the deep and superficial subcutaneous tissues. The skin was closed with pearl. The operative sites were injected with local anaesthetic with epinephrine for adjunctive postoperative pain control and hemostasis. St erile dressings were applied. All sponge, needle and instrument counts were correct at the end of the procedure. The patient tolerated the procedure well. He was transferred to a hospital bed and transported to the recovery room in stable condition.
[2019-11-10 20:38] LABS: Glucose,Whole Blood 183 mg/dL (75-99)
[2019-11-10] MEDS: PSYLLIUM HUSK 100% 6 GM PACKET PO SCH (21:18)
[2019-11-10] MEDS: traZODone HCL 50 MG TAB PO SCH (21:18)
[2019-11-10] MEDS: PARoxetine 20 MG TAB PO SCH (21:19)
[2019-11-11] MEDS: SODIUM CHLORIDE 0.9% 1,000 ML IV SCH ×3 (06:03→20:59)
[2019-11-11 06:45] LABS: Calcium 7.8 mg/dL (8.4-10.2); Potassium 3.5 mmol/L (3.5-5.1)
[2019-11-11 06:55] LABS: Glucose,Whole Blood 169 mg/dL (75-99)
[2019-11-11] MEDS: CIPROFLOXACIN HCL 250 MG TAB PO SCH (07:41)
[2019-11-11] MEDS: ATORVASTATIN 10 MG TAB PO SCH (07:41)
[2019-11-11] MEDS: CHOLECALCIFEROL 1,000 UNIT TAB PO SCH (07:42)
[2019-11-11] MEDS: ASPIRIN 81 MG PO SCH (07:42)
[2019-11-11] MEDS: amLODIPine 10 MG TAB PO SCH (07:42)
[2019-11-11] MEDS: ENOXAPARIN 40 MG/0.4 ML SYRINGE SQ SCH (07:42)
[2019-11-11] MEDS: INSULIN ASPART (NovoLOG) 100 UNIT/ML VIAL SQ SCH ×4 (07:42→20:50)
[2019-11-11] MEDS: ATENOLOL 50 MG TAB PO SCH (07:42)
[2019-11-11] MEDS: PSYLLIUM HUSK 100% 6 GM PACKET PO SCH ×2 (07:42→20:50)
--- NOTE | 2019-11-11 10:02 | CDI ---
Documentation Clarification Form Date: 11/11/2019 09:57:19 AM From: Elham Rodriguez RN, CCDS Admit Date: 11/09/2019 06:20:00 AM Patient Name: Rubio Teixeira Visit Number: [id number] ATTENTION: The Clinical Documentation Specialists (CDI) and [facility] Coding Staff appreciate your assistance in clarifying documentation. Please respond to the clarification below the line at the bottom and electronically sign. The CDI & [facility] Coding staff will review the response and follow-up if needed. Please note: Queries are made part of the Legal Health Record. If you have any questions, please contact the author of this message via ITS. Dr. Bam Ryan Please render your opinion on the clinical significance of the patients hemoglobin/hematocrit levels. History/Risk Factors: DVT, Prostate CA, Urothelial CA of right ureter Clinical indicators: 11/08-11/09 Hgb: 12.8/10.1 11/08-11/09 Hct: 10.1 11/08 Procedure Note: Displaced left intertrochanteric femur fracture. Closed reduction and internal fixation of left intertrochanteric femur fracture with cephalomedullary (IM) nail. EBL: 75 cc Treatment: Monitoring labs 0.9% NS @ 100 cc/hr In order to capture the severity of condition, please clarify if the labs/clinical indicators signify: Acute blood loss anemia (please specify if d/t procedure and if expected or unexpected) Acute on chronic blood loss anemia Chronic blood loss anemia Iron deficiency anemia Anemia due to malignancy Nutritional anemia Anemia of chronic disease Unable to determine Other, please specify (Last Form Revision: October 2019) Mild acute blood loss anemia combined with preop dehydration (as evidenced by BUN and Cr) and postop hemodilution from IVF. The latter likely represents the largest portion of the change. MTDD
[2019-11-11 11:19] LABS: Glucose,Whole Blood 136 mg/dL (75-99)
--- NOTE | 2019-11-11 14:11 | P.PN ---
Subjective Progress Note Date: 11/11/19 Principal diagnosis: 84-year-old male was admitted for a mechanical fall and hip fracture. I was consulted for medical clearance. 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 Patient is bit constipated still have some abdominal tenderness from the surgery. Patient did well with that surgery I'll obtain an EKG patient function status at baseline is. Is not a smoker doesn't have any history of heart disease denied doesn't have any history of congestive heart failure. Patient did is willing to undergo the surgery in spite of for her still being in pain from the previous surgery. 11/10/2019 Patient underwent the surgical correction for his intertrochanteric fracture. Patient denied any pain in that area patient's abdominal pain is also much better. Patient is passing gas did not move his bowel get still constipated. Patient is receiving senna will add MiraLAX. Constitutional: Denied any fatigue denied any fever. Cardio vascular: denied any chest pain, palpitations Gastrointestinal denied any nausea vomiting Pulmonary: Denied any shortness of breath cough Neurologic denied any new focal deficits All inpatient medications were reviewed and appropriate changes in these medications as dictated in the interval history and assessment and plan. 11/11/2019 Patient is seen and evaluated in follow-up today with no acute overnight issues. Patient is status post left surgical male fixation of the left intertrochanteric hip fracture. Patient continues with an indwelling catheter and will continue in the outpatient setting until follow-up with urology. Patient states he will be going to rehab in [place] upon discharge. Discussed with the patient about continuing to using incentive spirometer at least 10 times every hour while awake. Currently no reports of chest pain, shortness of breath, or palpitations. Patient is afebrile. No reports of nausea or vomiting and patient is tolerating diet. Patient states he is passing gas and feels that he has to have a bowel movement although it's been difficult as he has been having to use a bedpan. Will continue to follow along closely. Objective - Vital Signs Vital signs: Vital Signs Temp 98.9 F 11/11/19 11:53 Pulse 78 11/11/19 11:53 Resp 17 11/11/19 11:53 BP 156/67 11/11/19 11:53 Pulse Ox 96 11/11/19 11:53 Intake & Output 03/11/11/19 11/11/19 18:59 06:59 18:59 Intake Total 350 Output Total 600 1200 Balance -600 -850 Intake: Intake, IV Titration 350 Amount Sodium Chloride 0.9% 1, 350 000 ml @ 100 mls/hr IV . Q10H [facility] Rx#:[id number] Output: Urine 600 1200 Other: Voiding Method Indwelling Catheter Indwelling Catheter Indwelling Catheter - Exam GENERAL: The patient is alert and oriented x3, not in any acute distress. Well developed, well nourished. HEENT: Pupils are round and equally reacting to light. EOMI. No scleral icterus. No conjunctival pallor. Normocephalic, atraumatic. No pharyngeal erythema. No thyromegaly. CARDIOVASCULAR: S1 and S2 present. No murmurs, rubs, or gallops. PULMONARY: Chest is clear to auscultation, no wheezing or crackles. ABDOMEN: Abdomen is nondistended but diffuse mild tenderness all over the abdomen surgical scars are clean without any redness. MUSCULOSKELETAL: Deferred to orthopedic surgery EXTREMITIES: No cyanosis, clubbing, or pedal edema. NEUROLOGICAL: Gross neurological examination did not reveal any focal deficits. SKIN: No rashes. - Labs CBC & Chem 7: 11/10/19 05:45 11/11/19 05:30 Labs: Abnormal Lab Results - Last 24 Hours (Table) 11/10/19 11/10/19 11/11/19 Range/Units 17:15 20:37 05:30 Sodium 133 L (137-145) mmol/L Glucose 139 H (74-99) mg/dL POC Glucose (mg/dL) 146 H 183 H (75-99) mg/dL Calcium 7.8 L (8.4-10.2) mg/dL 11/11/19 11/11/19 Range/Units 06:54 11:18 Sodium (137-145) mmol/L Glucose (74-99) mg/dL POC Glucose (mg/dL) 169 H 136 H (75-99) mg/dL Calcium (8.4-10.2) mg/dL Assessment and Plan Assessment: -Left hip fracture status post left hip closed reduction and internal fixation of the left intertrochanteric femur fracture with cephalomedullary nail placement -Hyponatremia secondary to chlorthalidone which were discontinued; patient remains on IV fluids and current sodium is 133. -Hypertension with anticipation of perioperative hypotension and hold off on chlorthalidone and lisinopril monitor the blood pressure closely. Patient remains on amlodipine and atenolol. -Right-sided kidney cancer patient is status post nephrectomy -History of DVT in the past patient is presently not on any anticoagulation DVT prophylaxis as per orthopedic surgery -Hypokalemia secondary to chlorthalidone will be replaced, potassium is 3.5 today -Leukocytosis reactive from his previous surgery no evidence of infection at this time -Type 2 diabetes mellitus metformin will be held, patient remains on sliding scale insulin -Hyperlipidemia
--- NOTE | 2019-11-11 14:55 | P.PN ---
Subjective Progress Note Date: 11/11/19 This patient is an 84-year-old male that is status-post closed reduction and internal fixation of left intertrochanteric femur fracture with IM nail on 11/09/[address] Ryan. Today is post-operative day #2. Patient states he is doing well, his pain is well-controlled in the left hip. He does experience an increase in pain with ambulating. He has not been up with physical therapy yet today. He has not yet had a bowel movement post-operatively, he continues to pass gas. He denies any abdominal pain. 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 The patient will leave the Shah catheter in place until his follow-up appointment with his urologist on 11/17/19. The patient has no new complaints today. Vital signs stable. Objective - Vital Signs Vital signs: Vital Signs Temp 98.9 F 11/11/19 11:53 Pulse 78 11/11/19 11:53 Resp 17 11/11/19 11:53 BP 156/67 11/11/19 11:53 Pulse Ox 96 11/11/19 11:53 Intake & Output 11/10/19 11/11/19 11/11/19 18:59 06:59 18:59 Intake Total 350 Output Total 600 1200 Balance -600 -850 Intake: Intake, IV Titration 350 Amount Sodium Chloride 0.9% 1, 350 000 ml @ 100 mls/hr IV . Q10H [facility] Rx#:[id number] Output: Urine 600 1200 Other: Voiding Method Indwelling Catheter Indwelling Catheter Indwelling Catheter - Exam On examination, the patient is sitting up in bed in no apparent distress. He is alert and oriented 3. On inspection of the left hip, there is a clean, dry, intact surgical dressing in place. There is no drainage through the dressing. There is no ecchymosis, erythema of the hip. There is mild swelling of the hip and thigh. There is minimal pain on palpation of the left hip. Patient has good strength and range of motion of the left ankle. The left lower extremity is warm and well-perfused with brisk capillary refill. Dorsalis pedis pulse palpable. Motor and sensory function appear to be intact of the left lower extremity. Calves are soft and nontender to palpation bilaterally. - Labs CBC & Chem 7: 11/10/19 05:45 11/11/19 05:30 Labs: Abnormal Lab Results - Last 24 Hours (Table) 11/10/19 11/10/19 11/11/19 Range/Units 17:15 20:37 05:30 Sodium 133 L (137-145) mmol/L Glucose 139 H (74-99) mg/dL POC Glucose (mg/dL) 146 H 183 H (75-99) mg/dL Calcium 7.8 L (8.4-10.2) mg/dL 11/11/19 11/11/19 Range/Units 06:54 11:18 Sodium (137-145) mmol/L Glucose (74-99) mg/dL POC Glucose (mg/dL) 169 H 136 H (75-99) mg/dL Calcium (8.4-10.2) mg/dL Assessment and Plan Assessment: Displaced left intertrochanteric femur fracture status-post closed reduction and internal fixation of left intertrochanteric femur fracture with IM nail on 11/09/19. Postoperative day #2. Plan: - Patient may weight-bear as tolerated on the left lower extremity. Up with assistance, up with a walker. - Physical therapy for gait and balance training. - Continue senokot and milk of magnesia, monitor for bowel movement. - Lovenox for DVT prophylaxis. - Shah catheter to remain in place due to recent surgery. Shah catheter will remain in place until patient follow-up appointment with urologist. - Continue pain management as needed. - Internal medicine consultation for medical management. - Anticipate discharge to rehab tomorrow, pending medical clearance.
[2019-11-11 16:55] LABS: Glucose,Whole Blood 152 mg/dL (75-99)
[2019-11-11] MEDS: traZODone HCL 50 MG TAB PO SCH (20:50)
[2019-11-11] MEDS: PARoxetine 20 MG TAB PO SCH (20:50)
[2019-11-11 21:05] LABS: Glucose,Whole Blood 159 mg/dL (75-99)
[2019-11-11] MEDS: HYDROcodone/APAP 5-325MG 1 EACH TAB PO PRN (22:31)
[2019-11-12 04:57] VITALS: BP 159/70; PULSE 75; RESP 16; TEMP 97.9
[2019-11-12 06:03] LABS: Basophils % (A) 0 %; Eosinophils # (A) 0.2 k/uL (0-0.7); Eosinophils % (A) 5 %; HCT 25.4 % (39.0-53.0); HGB 8.9 gm/dL (13.0-17.5); Lymphocytes # (A) 0.7 k/uL (1.0-4.8); Lymphocytes % (A) 15 %; MCH 30.4 pg (25.0-35.0); MCV 86.8 fL (80.0-100.0); Mean Platelet Volume 7.9; Monocytes # (A) 0.3 k/uL (0-1.0); Monocytes % (A) 6 %; Neutrophils # (A) 3.3 k/uL (1.3-7.7); Neutrophils % (A) 71 %; Platelet Count 160 k/uL (150-450); RBC 2.92 m/uL (4.30-5.90); RDW 12.9 % (11.5-15.5); WBC 4.6 k/uL (3.8-10.6)
[2019-11-12 06:13] LABS: African American GFR (CKD) >90 (>60 ml/min/1.73 sqM); Anion Gap 1 mmol/L; Blood Urea Nitrogen 13 mg/dL (9-20); Calcium 7.5 mg/dL (8.4-10.2); Carbon Dioxide 31 mmol/L (22-30); Chloride 102 mmol/L (98-107); Glucose 115 mg/dL (74-99); Non-African American GFR(CKD) 80 (>60 ml/min/1.73 sqM); Potassium 3.1 mmol/L (3.5-5.1); Sodium 134 mmol/L (137-145)
[2019-11-12 07:02] LABS: Glucose,Whole Blood 134 mg/dL (75-99)
[2019-11-12] MEDS: ENOXAPARIN 40 MG/0.4 ML SYRINGE SQ SCH (08:13)
[2019-11-12] MEDS: amLODIPine 10 MG TAB PO SCH (08:14)
[2019-11-12] MEDS: CHOLECALCIFEROL 1,000 UNIT TAB PO SCH (08:14)
[2019-11-12] MEDS: ATORVASTATIN 10 MG TAB PO SCH (08:14)
[2019-11-12] MEDS: ASPIRIN 81 MG PO SCH (08:14)
[2019-11-12] MEDS: INSULIN ASPART (NovoLOG) 100 UNIT/ML VIAL SQ SCH (08:14)
[2019-11-12] MEDS: ATENOLOL 50 MG TAB PO SCH (08:14)
[2019-11-12] MEDS: PSYLLIUM HUSK 100% 6 GM PACKET PO SCH (08:15)
[2019-11-12] MEDS: SODIUM CHLORIDE 0.9% 1,000 ML IV SCH (08:15)
[2019-11-12] MEDS ORDERED: POTASSIUM CHLORIDE ER 20 MEQ TAB.ER PO STA (08:40)
--- NOTE | 2019-11-12 10:02 | P.DS ---
Providers Date of admission: 11/09/19 06:20 Expected date of discharge: 11/12/19 Attending physician: Bam Ryan DO Consults: 11/09/19 06:21 Consult Physician Routine Consulting Provider: Mohit Cisneros Reason/Comments: Medical management Do you want consulting provider notified?: Yes Primary care physician: Edwardo Newton MD - Discharge Diagnosis(es) (1) Fracture, intertrochanteric, left femur Patient was admitted to the OR on 11/09/2019 to undergo a closed reduction internal fixation of left IT femur fracture. He had suffered a fall resulting in a left hip fracture and desired to proceed with elective surgery after given informed consent. He underwent the above procedure which he tolerated well without complication. Postoperative hospital course has remained without complication. On day of discharge he is afebrile, vital signs stable, labs within acceptable ranges, tolerating by mouth meds and diet, voiding without difficulty, positive flatus, denies abdominal pain or calf pain, pain is controlled on oral pain medication and has no new complaints. Wound is benign, neurovascular status is intact, calf is soft and nontender, abdomen soft and nontender. Review of systems is negative for numbness, tingling, fever, chills, chest pain, shortness of breath, nausea, vomiting, dizziness, headaches, slurred speech or other Current Visit: Yes Status: Acute Priority: Medium Patient Condition at Discharge: Fair Plan - Discharge Summary Discharge Rx Participant: No New Discharge Prescriptions: No Action Cholecalciferol [Vitamin D3 (25 Mcg = 1000 Iu)] 1,000 unit PO DAILY Aspirin [Adult Low Dose Aspirin EC] 81 mg PO DAILY traZODone HCL 150 mg PO HS Simvastatin [Zocor] 20 mg PO HS PARoxetine [Paxil] 20 mg PO HS amLODIPine [Norvasc] 10 mg PO DAILY Chlorthalidone 25 mg PO DAILY Atenolol [Tenormin] 100 mg PO DAILY metFORMIN HCL [Glucophage] 500 mg PO DAILY Lisinopril 40 mg PO DAILY Ciprofloxacin HCl [Cipro] 250 mg PO Q12HR #6 tablet HYDROcodone/APAP 5-325MG [Beverly 5-325] 1 - 2 tab PO Q4H PRN PRN Reason: Pain Discharge Medication List Aspirin [Adult Low Dose Aspirin EC] 81 mg PO DAILY 11/04/19 [History] Atenolol [Tenormin] 100 mg PO DAILY 11/04/19 [History] Chlorthalidone 25 mg PO DAILY 11/04/19 [History] Cholecalciferol [Vitamin D3 (25 Mcg = 1000 Iu)] 1,000 unit PO DAILY 11/04/19 [History] Lisinopril 40 mg PO DAILY 11/04/19 [History] PARoxetine [Paxil] 20 mg PO HS 11/04/19 [History] Simvastatin [Zocor] 20 mg PO HS 11/04/19 [History] amLODIPine [Norvasc] 10 mg PO DAILY 11/04/19 [History] metFORMIN HCL [Glucophage] 500 mg PO DAILY 11/04/19 [History] traZODone HCL 150 mg PO HS 11/04/19 [History] Ciprofloxacin HCl [Cipro] 250 mg PO Q12HR #6 tablet 11/08/19 [Rx] HYDROcodone/APAP 5-325MG [Beverly 5-325] 1 - 2 tab PO Q4H PRN 11/09/19 [History] Follow up Appointment(s)/Referral(s): Bam Ryan DO [Medical Doctor] - 2 Weeks (Patient may follow-up with Dr. Ryan at [facility] in 2-3 weeks following discharge. ) Edwardo Newton MD [Primary Care Provider] - 1-2 days Activity/Diet/Wound Care/Special Instructions: 1. Patient may weight-bear on the left lower extremity as tolerated with use of a walker 2. Patient will continue with anticoagulation as prescribed postoperatively 3. Patient may apply ice over the incision sites of the left hip as needed for comfort support 4. Keep dressing over the left hip clean, dry, intact 5. Patient may shower without a dressing intact if incision sites remain dry over the next 72 hours 6. Take medications as prescribed Discharge Disposition: TRANSFER TO SNF/ECF
--- NOTE | 2019-11-12 14:03 | P.PN ---
Subjective Progress Note Date: 11/12/19 Principal diagnosis: 84-year-old male was admitted for a mechanical fall and hip fracture. I was consulted for medical clearance. 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 Patient is bit constipated still have some abdominal tenderness from the surgery. Patient did well with that surgery I'll obtain an EKG patient function status at baseline is. Is not a smoker doesn't have any history of heart disease denied doesn't have any history of congestive heart failure. Patient did is willing to undergo the surgery in spite of for her still being in pain from the previous surgery. 11/10/2019 Patient underwent the surgical correction for his intertrochanteric fracture. Patient denied any pain in that area patient's abdominal pain is also much better. Patient is passing gas did not move his bowel get still constipated. Patient is receiving senna will add MiraLAX. Constitutional: Denied any fatigue denied any fever. Cardio vascular: denied any chest pain, palpitations Gastrointestinal denied any nausea vomiting Pulmonary: Denied any shortness of breath cough Neurologic denied any new focal deficits All inpatient medications were reviewed and appropriate changes in these medications as dictated in the interval history and assessment and plan. 11/11/2019 Patient is seen and evaluated in follow-up today with no acute overnight issues. Patient is status post left surgical nail fixation of the left intertrochanteric hip fracture. Patient continues with an indwelling catheter and will continue in the outpatient setting until follow-up with urology. Patient states he will be going to rehab in [place] upon discharge. Discussed with the patient about continuing to using incentive spirometer at least 10 times every hour while awake. Currently no reports of chest pain, shortness of breath, or palpitations. Patient is afebrile. No reports of nausea or vomiting and patient is tolerating diet. Patient states he is passing gas and feels that he has to have a bowel movement although it's been difficult as he has been having to use a bedpan. Will continue to follow along closely. 11/12/2019 Patient is seen in follow-up today stating that he feels much better and is sitting up in the chair. Patient is scheduled to go to [facility] today in [place]. No acute overnight issues. Patient is 92% on room air and tolerating well. Instructed the patient to continue with incentive spirometer use at least 10 times every hour while awake. Currently no reports of chest pain, shortness of breath, or palpitations. Patient is afebrile. No reports of nausea or vomiting and patient is tolerating diet. Objective - Vital Signs Vital signs: Vital Signs Temp 97.9 F 11/12/19 04:56 Pulse 75 11/12/19 04:56 Resp 16 11/12/19 04:56 BP 159/70 11/12/19 04:56 Pulse Ox 92 L 11/12/19 04:56 Intake & Output 11/11/19 11/12/19 11/12/19 18:59 06:59 18:59 Intake Total 800 350 Output Total 1900 1100 500 Balance -1100 -750 -500 Intake: Intake, IV Titration 800 350 Amount Sodium Chloride 0.9% 1, 800 350 000 ml @ 100 mls/hr IV . Q10H [facility] Rx#:[id number] Output: Urine 1900 1100 500 Other: Voiding Method Indwelling Catheter Indwelling Catheter Indwelling Catheter # Bowel Movements 3 1 - Exam GENERAL: The patient is alert and oriented x3, not in any acute distress. Well developed, well nourished. HEENT: Pupils are round and equally reacting to light. EOMI. No scleral icterus. No conjunctival pallor. Normocephalic, atraumatic. No pharyngeal erythema. No thyromegaly. CARDIOVASCULAR: S1 and S2 present. No murmurs, rubs, or gallops. PULMONARY: Chest is clear to auscultation, no wheezing or crackles. ABDOMEN: Abdomen is nondistended, mild tenderness on palpation status post surgery recently although states is better today MUSCULOSKELETAL: Deferred to orthopedic surgery EXTREMITIES: No cyanosis, clubbing, or pedal edema. NEUROLOGICAL: Gross neurological examination did not reveal any focal deficits. SKIN: No rashes. - Labs CBC & Chem 7: 11/12/19 05:34 11/12/19 05:34 Labs: Abnormal Lab Results - Last 24 Hours (Table) 11/11/19 11/11/19 11/12/19 Range/Units 16:54 20:44 05:34 RBC 2.92 L (4.30-5.90) m/uL Hgb 8.9 L (13.0-17.5) gm/dL Hct 25.4 L (39.0-53.0) % Lymphocytes # 0.7 L (1.0-4.8) k/uL Sodium (137-145) mmol/L Potassium (3.5-5.1) mmol/L Carbon Dioxide (22-30) mmol/L Glucose (74-99) mg/dL POC Glucose (mg/dL) 152 H 159 H (75-99) mg/dL Calcium (8.4-10.2) mg/dL 11/12/19 11/12/19 Range/Units 05:34 06:57 RBC (4.30-5.90) m/uL Hgb (13.0-17.5) gm/dL Hct (39.0-53.0) % Lymphocytes # (1.0-4.8) k/uL Sodium 134 L (137-145) mmol/L Potassium 3.1 L (3.5-5.1) mmol/L Carbon Dioxide 31 H (22-30) mmol/L Glucose 115 H (74-99) mg/dL POC Glucose (mg/dL) 134 H (75-99) mg/dL Calcium 7.5 L (8.4-10.2) mg/dL Assessment and Plan Assessment: -Left hip fracture status post left hip closed reduction and internal fixation of the left intertrochanteric femur fracture with cephalomedullary nail placement -Hyponatremia secondary to chlorthalidone which was discontinued; current sodium is 134. -Hypertension with anticipation of perioperative hypotension. Patient remains on amlodipine and atenolol. -Right-sided kidney cancer patient is status post nephrectomy -History of DVT in the past patient is presently not on any anticoagulation DVT prophylaxis as per orthopedic surgery -Hypokalemia secondary to chlorthalidone will be replaced, potassium is 3.1 today -Leukocytosis reactive from his previous surgery no evidence of infection at this time -Type 2 diabetes mellitus metformin will be held, patient remains on sliding scale insulin -Hyperlipidemia Plan: Patient is going to be discharged to [facility] today per orthopedic surgery. Potassium was replaced today and recommending repeat labs in 2-3 days to monitor potassium. Current potassium is 3.1. Instructed the patient to continue using incentive spirometer at least 10 times every hour while awake and increase activity as tolerated with physical therapy. Plan is for discharge today.
== END 2019-11-12 12:27 | DRG 481 ==
LOC: EC 03:23 → 5NMEDONC 06:20
PROVIDERS: ADMIT Orthopaedic Surgery; ATTEND Orthopaedic Surgery
PROC: 0QS736Z Reposition Left Upper Femur with Intramedullary Internal Fixation Device, Percutaneous Approach (ICD-10-PCS; principal; 2019-11-09 11:18)
DX: S72.142A Displaced intertrochanteric fracture of left femur, initial encounter for closed fracture (principal); E87.1 Hypo-osmolality and hyponatremia; D62 Acute posthemorrhagic anemia; W01.0XXA Fall on same level from slipping, tripping and stumbling without subsequent striking against object, initial encounter; C61 Malignant neoplasm of prostate; C67.6 Malignant neoplasm of ureteric orifice; Z90.5 Acquired absence of kidney; Z90.6 Acquired absence of other parts of urinary tract; D72.829 Elevated white blood cell count, unspecified; E11.9 Type 2 diabetes mellitus without complications; E78.5 Hyperlipidemia, unspecified; E87.6 Hypokalemia; T50.2X5A Adverse effect of carbonic-anhydrase inhibitors, benzothiadiazides and other diuretics, initial encounter; I10 Essential (primary) hypertension; K59.00 Constipation, unspecified; M16.12 Unilateral primary osteoarthritis, left hip; Z79.82 Long term (current) use of aspirin; I95.9 Hypotension, unspecified; Z79.84 Long term (current) use of oral hypoglycemic drugs; Z79.899 Other long term (current) drug therapy; Z86.718 Personal history of other venous thrombosis and embolism; Z87.891 Personal history of nicotine dependence; E86.0 Dehydration
CPT/HCPCS: 36415; 71045; 72170; 73501; 73502; 80048; 80053; 85025; 93005; 96374; 99285

== ENCOUNTER → 2020-04-24 | Outpatient (CLI) | payer MEDICARE | END | disposition home or self-care (01) | LOC: LABWHC1 11:01 | PROVIDERS: ATTEND Radiology Radiation Oncology | DX: C61 Malignant neoplasm of prostate (principal); Z79.818 Long term (current) use of other agents affecting estrogen receptors and estrogen levels; Z87.891 Personal history of nicotine dependence | CPT/HCPCS: 36415; 84153 ==

== ENCOUNTER → 2020-10-30 | Outpatient (CLI) | payer MEDICARE | END | disposition home or self-care (01) | LOC: LABWHC1 11:05 | PROVIDERS: ATTEND Radiology Radiation Oncology | DX: C61 Malignant neoplasm of prostate (principal); Z79.818 Long term (current) use of other agents affecting estrogen receptors and estrogen levels; Z87.891 Personal history of nicotine dependence | CPT/HCPCS: 36415; 84153 ==

== ENCOUNTER → 2021-01-01 | Outpatient (CLI) | payer MEDICARE ==
--- NOTE | 2021-01-01 15:52 | US ---
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 H/O renal CA, right kidney surgi karena removed EXAM MEASUREMENTS: Left Kidney: 11.6 x 4.7 x 6.2 cm Right Kidney: Surgically absent Left Kidney: Cystic structure upper pole= 1.7 x 1.1 x 1.7 cm Bladder: Multiple bladder diverticula. This most likely represents chronic outlet obstruction from en larged prostate gland. Bilateral Jets seen: No The prostate gland is grossly enlarged and abuts on the base of the urinary bladder measuring 4.7 cm transverse. IMPRESSION: 1. Enlarged prostate gland abuts on the base of the urinary bladder. There are bladder diverticula hoyos ggestive of chronic outlet obstruction. Urologic evaluation would be helpful. 2. Right nephrectomy. 3. 1.7 cm left renal cystic structure at the upper pole.
== END | disposition home or self-care (01) ==
LOC: RADUSWWP 12:21
PROVIDERS: ATTEND Urology
DX: N28.1 Cyst of kidney, acquired (principal); N40.0 Benign prostatic hyperplasia without lower urinary tract symptoms; Z90.5 Acquired absence of kidney
CPT/HCPCS: 76770

== ENCOUNTER → 2021-05-19 | Outpatient (CLI) | payer MEDICARE | END | disposition home or self-care (01) | LOC: LABWHC1 11:21 | PROVIDERS: ATTEND Radiology Radiation Oncology | DX: C61 Malignant neoplasm of prostate (principal); Z92.3 Personal history of irradiation; Z79.818 Long term (current) use of other agents affecting estrogen receptors and estrogen levels; Z79.891 Long term (current) use of opiate analgesic | CPT/HCPCS: 36415; 84153 ==

== ENCOUNTER → 2021-10-21 | Outpatient (CLI) | payer MEDICARE | END | disposition home or self-care (01) | LOC: LABWHC1 10:02 | PROVIDERS: ATTEND Radiology Radiation Oncology | DX: C61 Malignant neoplasm of prostate (principal); Z79.818 Long term (current) use of other agents affecting estrogen receptors and estrogen levels; Z92.3 Personal history of irradiation; Z87.891 Personal history of nicotine dependence | CPT/HCPCS: 36415; 84153 ==

== ENCOUNTER → 2022-03-25 | Outpatient (CLI) | payer MEDICARE | END | disposition home or self-care (01) | LOC: LABWHC1 11:46 | PROVIDERS: ATTEND Radiology Radiation Oncology | DX: C61 Malignant neoplasm of prostate (principal); Z90.5 Acquired absence of kidney; Z92.3 Personal history of irradiation; Z79.818 Long term (current) use of other agents affecting estrogen receptors and estrogen levels; Z87.891 Personal history of nicotine dependence | CPT/HCPCS: 36415; 84153 ==

== ENCOUNTER → 2022-12-02 | Outpatient (CLI) | payer MEDICARE ==
--- NOTE | 2022-12-04 19:40 | CT ---
EXAMINATION TYPE: CT urogram wo/w con CT DLP: 3323 mGycm, Automated exposure control for dose reduction was used. DATE OF EXAM: 12/02/2022 11:45 AM COMPARISON: CT abdomen pelvis most recent from 08/05/2019 CLINICAL INDICATION:Male, 87 years old with history of C66.1;, h/o single kidney, right kidney remove d TECHNIQUE: Urogram with imaging of the abdomen and pelvis. Coronal and sagittal reformats were performed. 2D and 3D reconstructions are performed to assist visualization of the urinary tract on a separate workstat ion. Contrast used:80 mL of Isovue 300 with IV Contrast, Oral contrast used: None. FINDINGS: LOWER CHEST: Scattered peripheral reticulation right lower lobe calcified granulomas. GENITOURINARY: RIGHT KIDNEY AND URETER: Surgically absent. No evidence for soft tissue to suggest recurrence.. LEFT KIDNEY AND URETER: No calculi. No hydronephrosis or hydroureter. No renal mass or other lesions. No urothelial lesions: no filling defect, dilation, stricture or wall thickening. Multiple simple ap pearing renal cysts are present. URINARY BLADDER: Bladder wall thickening measuring up to 10 mm with trabeculations seen on 10 minute delayed imaging. REPRODUCTIVE: Prostate gland is enlarged and shifted to 4.9 cm in transverse dimension. ABDOMEN LIVER: Unremarkable. GALLBLADDER AND BILE DUCTS: Unremarkable PANCREAS: Unremarkable. SPLEEN: Unremarkable. ADRENAL GLANDS: Unremarkable. STOMACH AND BOWEL: . No evidence of bowel obstruction. Scattered colonic diverticula are present thro ughout the colon most pronounced in the sigmoid colon. There is a high density object within the righ t abdomen series 4 image 43 within the small bowel. Likely representing ingested contents. PERITONEUM: No evidence of pneumoperitoneum, free fluid, or adenopathy. VASCULATURE: No evidence of aortic aneurysm. Scattered atherosclerosis of the arterial vasculature. MUSCULOSKELETAL: No acute osseous abnormalities, left hepatic plasty fixation changes which appear in tact. Compression deformity of the L1 vertebral body. This is new from 2019. Is about 25% height loss no retropulsion. LYMPH NODES: No gross evidence for lymphadenopathy. SOFT TISSUE/ABDOMINAL WALL: Bilateral fat-containing inguinal hernias. IMPRESSION: 1. Surgically absent right kidney without evidence of soft tissue to suggest recurrence. No lymphade nopathy. 2. No evidence of urolithiasis or renal/urothelial neoplasm of the left kidney. 3. Somewhat nondistended urinary bladder with thickening of the wall anteriorly up to 10 mm which co uld be due to nondistention. Correlate with direct visualization. 4. Prostatomegaly correlate serum PSA. Prior pulmonary nodules do not 5. Extensive colonic diverticulosis. 6. New from 2019 there is a compression deformity of the L1 vertebral body, without retropulsion and 25% height loss.
== END | disposition home or self-care (01) ==
LOC: RADCTMAIN 09:58
PROVIDERS: ATTEND Urology
DX: C66.1 Malignant neoplasm of right ureter (principal); N40.0 Benign prostatic hyperplasia without lower urinary tract symptoms; K57.30 Diverticulosis of large intestine without perforation or abscess without bleeding; N32.89 Other specified disorders of bladder; Z90.5 Acquired absence of kidney
CPT/HCPCS: 82565; 84520; 74178; 36415; 74400; Q9967

== ENCOUNTER → 2022-12-13 | Outpatient (CLI) | payer MEDICARE | END | disposition home or self-care (01) | LOC: LABPAT 11:25 | PROVIDERS: ATTEND Urology | DX: Z53.9 Procedure and treatment not carried out, unspecified reason (principal) ==

== ENCOUNTER → 2023-07-10 | Outpatient (CLI) | payer MEDICARE | END | disposition home or self-care (01) | LOC: LABWHC1 12:35 | PROVIDERS: ATTEND Radiology Radiation Oncology | DX: C61 Malignant neoplasm of prostate (principal); Z08 Encounter for follow-up examination after completed treatment for malignant neoplasm; Z85.46 Personal history of malignant neoplasm of prostate; Z90.5 Acquired absence of kidney; Z92.3 Personal history of irradiation; Z79.818 Long term (current) use of other agents affecting estrogen receptors and estrogen levels | CPT/HCPCS: 36415; 84153 ==